=== PATIENT | male | born 1990 ===

== ENCOUNTER 2017-10-11 14:36 | Emergency (ER) | payer SELFPAY ==
[2017-10-11] MEDS ORDERED: Adacel (T-DAP) 0.5 ML VIAL ONE (15:34)
[2017-10-11] MEDS ORDERED: HYDROcodone/Acetaminophen 5/325 mg Tablet ONE (15:35)
[2017-10-11] MEDS ORDERED: Silver Sulfadiazine 1% Cream 50 GM JAR ONE (16:49)
== END 2017-10-11 17:29 | disposition home or self-care (01) ==
LOC: ERS 14:36
DX: T23.042A Burn of unspecified degree of multiple left fingers (nail), including thumb, initial encounter (principal); T31.0 Burns involving less than 10% of body surface; Z23 Encounter for immunization; X19.XXXA Contact with other heat and hot substances, initial encounter; Y93.G3 Activity, cooking and baking
CPT/HCPCS: 16000; 90471; 90715